=== PATIENT | male | born 1990 | race Caucasian/White ===

== ENCOUNTER 2017-09-30 17:42 | Emergency (ER) | payer OTHER ==
[2017-09-30 18:10] VITALS: BP 146/95
--- NOTE | 2017-09-30 18:58 | RAD ---
Indication: LEFT ankle and foot pain following self reported dislocation and relocation which occurred while running. Comparison: No relevant prior exams available on the [facility] PACS for comparison. Technique: AP, mortise, and lateral views LEFT ankle. AP, lateral, and oblique views LEFT foot. Report: Moderately severe soft tissue swelling over the lateral malleolus and evidence for talocrural joint effusion. Negative for fracture or malalignment at the ankle or foot. IMPRESSION: Consider lateral supporting ligament injury at the ankle.
--- NOTE | 2017-09-30 20:58 | UC ---
Damir Main Rebecca, scribed for Pedro Castellano MD on 09/30/17 at 1813 . Lower Extremity/Ankle HPI - HPI Summary HPI Summary: Pt is a 27 y/o M who presents to [facility] c/o L ankle pain. At approximately 1530 today he was playing kickball and while running he believes his ankle dislocated. Reports he was able to reduce it himself immediately after the injury. Negative LOC. Associated pain is currently mild, ranked 2/10. Unsure if injury was on the medial or lateral side. Able to ambulate on the foot. PMHx sprained the L ankle multiple times. - History of Current Complaint Chief Complaint: UCLowerExtremity Stated Complaint: ANKLE INJURY Time Seen by Provider: 09/30/17 18:02 Hx Obtained From: Patient Onset/Duration: Lasting Hours, Still Present Severity Currently: Mild Pain Intensity: 2 Pain Scale Used: 0-10 Numeric Aggravating Factor(s): Nothing Alleviating Factor(s): Nothing Able to Bear Weight: Yes - Allergies/Home Medications Allergies/Adverse Reactions: Allergies Allergy/AdvReac Type Severity Reaction Status Date / Time No Known Allergies Allergy Verified 09/30/17 18:10 PMH/Surg Hx/FS Hx/Imm Hx - Additional Past Medical History Additional PMH: NEGATIVE PMHx: HTN, DM, COPD, Thyroid Disease Previously Healthy: Yes - Surgical History Surgery Procedure, Year, and Place: acl on r knee w/ scope - Family History Known Family History: Positive: Cardiac Disease - Social History Alcohol Use: Weekly Substance Use Type: None Smoking Status (MU): Never Smoked Tobacco Review of Systems Constitutional: Negative Skin: Negative Eyes: Negative ENT: Negative Respiratory: Negative Cardiovascular: Negative Gastrointestinal: Negative Genitourinary: Negative Motor: Negative Neurovascular: Negative Musculoskeletal: Arthralgia - L ankle pain Neurological: Negative Psychological: Negative All Other Systems Reviewed And Are Negative: Yes Physical Exam - Summary Physical Exam Summary: VITAL SIGNS: Reviewed. GENERAL: ~Patient is a well developed and nourished male who is lying comfortable in the stretcher. ~Patient is not in any acute respiratory distress. HEAD AND FACE: Normocephalic EYES: PERRLA, EOMI x 2. EARS: Hearing grossly intact. MOUTH: Oropharynx within normal limits. NECK: Supple, trachea is midline, no adenopathy, no JVD, no carotid bruit. CHEST: Symmetric, no tenderness at palpation LUNGS: Clear to auscultation bilaterally. No wheezing or crackles. CVS: Regular rate and rhythm, S1 and S2 present, no murmurs or gallops appreciated. EXTREMITIES: Swelling of the left lateral malleolus with slightly decreased ROM. Good pulses and good capillary refill. No cyanosis or clubbing. NEURO: Alert and oriented x 3. No acute neurological deficits. Speech is normal and follows commands. SKIN: Dry and warm Triage Information Reviewed: Yes Vital Signs: Initial Vital Signs Temp 99.3 F 09/30/17 18:03 Pulse 110 09/30/17 18:03 Resp 18 09/30/17 18:03 BP 146/95 09/30/17 18:03 Pulse Ox 100 09/30/17 18:03 Vital Signs Reviewed: Yes Diagnostics - Radiology Left ankle XR Xray Interpretation: Positive (See Comments) - IMPRESSION: Consider lateral supporting ligament injury at the ankle. Dr. Castellano has reviewed this radiology report. Radiology Interpretation Completed By: Radiologist Left foot XR Xray Interpretation: Positive (See Comments) - Consider lateral supporting ligament injury at the ankle. Dr. Castellano has reviewed this radiology report. Radiology Interpretation Completed By: Radiologist Re-Evaluation - Re-Evaluation First Eval Re-Evaluation Time: 19:04 Comment: I reviewed the XR results with the pt. He will be discharged home with orthopedics follow up. Lower Extremity Course/Dx - Course Course Of Treatment: Pt is a 27 y/o M who presents to [facility] c/o L ankle pain. At approximately 1530 today he was playing kickball and while running he believes his ankle dislocated. Reports he was able to reduce it himself immediately after the injury. Negative LOC. Associated pain is currently mild, ranked 2/10. Unsure if injury was on the medial or lateral side. Able to ambulate on the foot. PMHx sprained the L ankle multiple times. Left ankle and left foot XR show consider lateral supporting ligament injury at the ankle. Pt will be discharged home with follow up from orthopedics. He will be given a CAM boot and crutches to help him ambulate. Pt will be given a prescription for ibuprofen. I discussed all the findings and test results with the patient. Patient was instructed to return to the urgent care or go to ER immediately if any of the symptoms return or worsens. Plan of care was discussed with the patient, and patient understands and agrees. All questions were answered to patient satisfaction. There were no further complaints or concerns. The patient was found to have increased BP in UC. The patient will follow up with PCP for better control of BP. - Differential Dx/Diagnosis Provider Diagnoses: Lateral ligament injury Discharge - Sign-Out/Discharge Documenting (check all that apply): Discharge/Admit/Transfer - Discharge - Discharge Plan Condition: Stable Disposition: HOME Prescriptions: Ibuprofen TAB* [Motrin TAB* 800 MG] 800 mg PO Q8H PRN #30 tab PRN Reason: Pain Patient Education Materials: Arthralgia (ED), Swollen Joint (ED) Referrals: [facility] PHYSICIAN REFERRAL [Outside] Jose A Khan MD [Medical Doctor] - Additional Instructions: Take medications as instructed Increase your fluid intake Return to the UC if symptoms worsen Follow up with orthopedics, Dr. Khan. FOLLOW UP WITH YOUR PRIMARY CARE PROVIDER WITHIN ONE WEEK FOR HIGH BLOOD PRESSURE NOTED TODAY. RETURN TO URGENT CARE OR THE ED FOR ANY WORSENING OR NEW SYMPTOMS. The documentation as recorded by the Damir young Rebecca accurately reflects the service I personally performed and the decisions made by , Pedro Castellano MD.
--- NOTE | 2017-09-30 22:08 | RAD ---
Indication: LEFT ankle and foot pain following self reported dislocation and relocation which occurred while running. Comparison: No relevant prior exams available on the [facility] for comparison. Technique: AP, mortise, and lateral views LEFT ankle. AP, lateral, and oblique views LEFT foot. Report: Moderately severe soft tissue swelling over the lateral malleolus and evidence for talocrural joint effusion. Negative for fracture or malalignment at the ankle or foot. IMPRESSION: Consider lateral supporting ligament injury at the ankle.
== END 2017-09-30 19:28 | disposition home or self-care (01) ==
LOC: UCEAST 17:42
DX: S93.402A Sprain of unspecified ligament of left ankle, initial encounter (principal); X58.XXXA Exposure to other specified factors, initial encounter; Y93.6A Activity, physical games generally associated with school recess, summer camp and children; Y92.39 Other specified sports and athletic area as the place of occurrence of the external cause
CPT/HCPCS: 99203; G0463